=== PATIENT | female | born 1990 | race American Indian/Alaskan Native ===

== ENCOUNTER 2018-09-11 12:16 | Emergency (ER) | payer SELFPAY ==
[2018-09-11 12:26] VITALS: BP 122/85
--- NOTE | 2018-09-11 12:27 | Emergency Department Report ---
Chief Complaint: Urogenital-Female Stated Complaint: LEAKAGE FROM LEFT BREAST Time Seen by Provider: 09/11/18 12:23 - HPI History of Present Illness: pt presents with brown drainage from the left breast that began 1 year and a half ago she states the drainage became bloody the last couple of days stopped OCP 5 months ago pt has been seen by ELECTROMECHANICAL TECHNICIAN and had a US and mammogram to r/o breast CA which she states was normal she had this work up done in [facility] 4 days ago never been MSE screening note: Focused history and physical exam performed. ED Disposition for MSE Condition: Stable
--- NOTE | 2018-09-11 13:05 | Emergency Department Report ---
ED General Adult HPI - General Chief complaint: Urogenital-Female Stated complaint: LEAKAGE FROM LEFT BREAST Time Seen by Provider: 09/11/18 12:23 Source: patient Mode of arrival: Ambulatory Limitations: No Limitations - History of Present Illness Initial comments: This is a 28-year-old female nontoxic, well nourished in appearance, no acute signs of distress presents to the ED with c/o of left breast lump with clear discharge. Patient stated this been going on for past year. Patient stated she did follow up with a supervisor furnace room and primary care doctor. Patient agrees to having a mammogram last year and was normal. Patient denies any chance of being . Patient denies any fever, chills, nausea, vomiting, chest pain, shortness of breath, headache or stiff neck. Patient denies any symptoms or concerns. Denies any allergies or significant past medical history. MD Complaint: left breast discharge with lump -: year(s) (1) Radiation: non-radiation Severity scale (0 -10): 3 Quality: sharp Consistency: intermittent Improves with: none Worsens with: none Associated Symptoms: denies other symptoms. denies: confusion, chest pain, cough, diaphoresis, fever/chills, headaches, malaise, nausea/vomiting, rash, seizure, shortness of breath, syncope, weakness Treatments Prior to Arrival: none - Related Data Previous Rx's Medication Instructions Recorded Last Taken Type Clindamycin [Clindamycin CAP] 300 mg PO Q8H #21 cap 09/11/18 Unknown Rx Allergies Allergy/AdvReac Type Severity Reaction Status Date / Time No Known Allergies Allergy Unverified 09/11/18 12:18 ED Review of Systems ROS: Stated complaint: LEAKAGE FROM LEFT BREAST Other details as noted in HPI Constitutional: denies: chills, fever Eyes: denies: eye pain, eye discharge, vision change ENT: denies: ear pain, throat pain Respiratory: denies: cough, shortness of breath, wheezing Cardiovascular: denies: chest pain, palpitations Endocrine: no symptoms reported Gastrointestinal: denies: abdominal pain, nausea, diarrhea Genitourinary: denies: urgency, dysuria, discharge Musculoskeletal: denies: back pain, joint swelling, arthralgia Skin: denies: rash, lesions Neurological: denies: headache, weakness, paresthesias Psychiatric: denies: anxiety, depression Hematological/Lymphatic: denies: easy bleeding, easy bruising ED Past Medical Hx - Past Medical History Previous Medical History?: No - Surgical History Past Surgical History?: No - Social History Smoking Status: Never Smoker Substance Use Type: Marijuana - Medications Home Medications: Home Medications Medication Instructions Recorded Confirmed Last Taken Type Clindamycin [Clindamycin CAP] 300 mg PO Q8H #21 cap 09/11/18 Unknown Rx ED Physical Exam - General Limitations: No Limitations General appearance: alert, in no apparent distress - Head Head exam: Present: atraumatic, normocephalic - Eye Eye exam: Present: normal appearance - Neck Neck exam: Present: normal inspection, full ROM. Absent: tenderness, meningismus, lymphadenopathy - Respiratory Respiratory exam: Present: normal lung sounds bilaterally. Absent: respiratory distress, wheezes, rales, rhonchi, stridor, chest wall tenderness, accessory muscle use, decreased breath sounds, prolonged expiratory - Cardiovascular Cardiovascular Exam: Present: regular rate, normal rhythm - Extremities Exam Extremities exam: Present: normal inspection, full ROM - Back Exam Back exam: Present: normal inspection, full ROM - Neurological Exam Neurological exam: Present: alert, oriented X3 - Psychiatric Psychiatric exam: Present: normal affect, normal mood - Skin Skin exam: Present: warm, dry, intact, normal color. Absent: rash - Other Other exam information: Left breast slight clear discharge and mobile nontender to tenderness nodular mass to left breast. No signs of cellulitis or abscess. No induration or fluctuance. ED Course Vital Signs 09/11/18 12:24 Temperature 97.7 F Pulse Rate 66 Respiratory 16 Rate Blood Pressure 122/85 O2 Sat by Pulse 100 Oximetry - Reevaluation(s) Reevaluation #1: 09/11/18 13:03 Patient is speaking in full sentences with no signs of distress noted. ED Medical Decision Making - Medical Decision Making 28-year-old female that presents with left breast mass and discharged. Patient is stable exam by me. I will treat patient empirically with Bactrim. Patient was referred to follow up with a primary care doctor for another mammogram. At time of discharge, the patient does not seem toxic or ill in appearance. No acute signs of distress noted. Patient agrees to discharge treatment plan of care. No further questions noted by the patient. Critical care attestation.: If time is entered above; I have spent that time in minutes in the direct care of this critically ill patient, excluding procedure time. ED Disposition Clinical Impression: Left breast mass, Breast discharge Disposition: TO HOME OR SELFCARE Is pt being admited?: No Does the pt Need Aspirin: No Condition: Stable Instructions: Breast Mass (ED) Additional Instructions: Follow-up with a primary care/supervisor furnace room doctor in 3-5 days or if symptoms worsen and continue return to emergency room as soon as possible. Prescriptions: Clindamycin [Clindamycin CAP] 300 mg PO Q8H #21 cap Referrals: PRIMARY CARE, [Referring] - 3-5 Days JEVON THOMAS MD [Staff Physician] - 3-5 Days LELO SCHMID MD [Staff Physician] - 3-5 Days [facility] [Provider Group] - 3-5 Days [facility] [Outside] - 3-[address] [facility] [Outside] - 3-5 Days Forms: Work/School Release Form(ED)
== END 2018-09-11 13:28 | disposition home or self-care (01) ==
LOC: ED 12:16
DX: N64.52 Nipple discharge (principal)
CPT/HCPCS: 99282